=== PATIENT | female | born 1965 | race Caucasian/White ===

== ENCOUNTER → 2019-07-14 | Outpatient (CLI) | payer OTHER ==
[2019-07-14 22:39] LABS: FREE T4 (FREE THYROXINE) 1.05 NG/DL (0.70-1.48)
== END ==
LOC: LAB FS 15:47
PROVIDERS: ATTEND Family Medicine
DX: E03.9 Hypothyroidism, unspecified (principal)
CPT/HCPCS: 36415; 84439; 84443

== ENCOUNTER → 2020-10-19 | Outpatient (CLI) | payer OTHER ==
--- NOTE | 2020-10-19 11:36 | Diagnostic Imaging Report ---
INDICATION: PAIN IN RIGHT FOOT. STEPPED WRONG, TWISTED FOOT. TECHNIQUE: 3 views of the right foot CORRELATION STUDY: None FINDINGS: The osseous structures of the foot are intact. Joint spaces are maintained. Alignment anatomic. Soft tissues appearing unremarkable. IMPRESSION: 1. Negative for acute findings of the foot. Dictated by: Dictated on workstation # [id number]
[2020-10-19 11:54] LABS: BUN/CREATININE RATIO 18; CALCIUM 9.3 MG/DL (8.5-10.1); CARBON DIOXIDE 27 MMOL/L (21-32); CHLORIDE 103 MMOL/L (98-107); CREATININE SERUM 0.88 MG/DL (0.60-1.30); GFR ESTIMATED > 60; GLUCOSE 88 MG/DL (70-105); POTASSIUM 4.2 MMOL/L (3.6-5.0); SODIUM 137 MMOL/L (135-145)
[2020-10-19 11:55] LABS: ALANINE AMINOTRANSFERASE 15 U/L (0-55); ALBUMIN 4.2 GM/DL (3.2-4.5); ALKALINE PHOSPHATASE 96 U/L (40-136); BILIRUBIN,TOTAL 0.3 MG/DL (0.1-1.0); TOTAL PROTEIN 7.5 GM/DL (6.4-8.2)
[2020-10-19 15:16] LABS: TRIGLYCERIDES 69 MG/DL (<150); VLDL CHOLESTEROL 14 MG/DL (5-40)
[2020-10-19 15:21] LABS: CHOLESTEROL 171 MG/DL (< 200)
[2020-10-19 15:22] LABS: HDL CHOLESTEROL 39 MG/DL (40-60)
== END ==
LOC: LAB FS 11:01
PROVIDERS: ATTEND Family Medicine
DX: Z00.00 Encounter for general adult medical examination without abnormal findings (principal); E03.9 Hypothyroidism, unspecified; M79.671 Pain in right foot
CPT/HCPCS: 36415; 73630; 80053; 80061; 84443

== ENCOUNTER → 2021-05-30 | Outpatient (CLI) | payer OTHER | LOC: LAB FS 13:47 | PROVIDERS: ATTEND Family Medicine | DX: E03.9 Hypothyroidism, unspecified (principal) | CPT/HCPCS: 36415; 84443 ==

== ENCOUNTER → 2022-07-17 | Outpatient (CLI) | payer OTHER ==
[~2022-07-17] MED LIST: BARIUM for suspension 96% w/w (Vanilla Silq Medium Density) PO ONE; BARIUM for suspension 98% w/w (Vanilla Silq High Density) PO ONE
--- NOTE | 2022-07-18 09:52 | Diagnostic Imaging Report ---
Upper GI exam. Indication: Gastroesophageal reflux There are no prior studies available for comparison. The digital sales director films of the chest and abdomen failed to show any sign of an acute abnormality. There does appear to be a hiatal hernia on the digital sales director film and reportedly the patient had a recent endoscopic procedure which indicated that there was a hiatal hernia. A double contrast study was performed. The patient swallowed the contrast material without difficulty. There is indeed a large hiatal hernia.. There is also mild narrowing of the distal esophagus proximal to these hiatal hernia but there is no sign of a mass or stricture in this region. There was gastroesophageal reflux on 2 occasions during exam but there is no sign of esophagitis. The stomach shows fairly good distensibility and motility. On the initial images there did appear to be 2 or 3 small rounded defects within the body of stomach. These did not persist on the delayed images however and consequently are more likely due to pooling of the contrast amidst the gastric rugae than to polyp formation. Even so, correlation with patient's endoscopic exam would be recommended. No other gastric mass is noted. There is no evidence for ulceration involving the stomach or the duodenum. The proximal small bowel was unremarkable. Impression: 1. There is a large hiatal hernia with gastroesophageal reflux. There is no sign of esophagitis however. 2. The distal esophagus near its junction with a hiatal hernia is narrowed but there is no mass or stricture identified. 3. There is no acute abnormality of the stomach duodenum or proximal small bowel. 4. The small defects within this gastric rugae are more likely due to barium within the rugae than to polyps. Correlation with patient's endoscopic exam would be recommended. Dictated by: Dictated on workstation # [id number]
== END ==
LOC: RAD 09:20
PROVIDERS: ATTEND Surgery
DX: K44.9 Diaphragmatic hernia without obstruction or gangrene (principal); K21.9 Gastro-esophageal reflux disease without esophagitis; K22.2 Esophageal obstruction
CPT/HCPCS: 74246